=== PATIENT | male | born 1955 | race Caucasian/White ===

== ENCOUNTER 2021-04-09 07:47 | Outpatient (CLI) | payer OTHER, SELFPAY ==
--- NOTE | ~2021-04-09 | MR_ITS ---
EXAMINATION: MR lumbar spine wo con DATE: 04/09/2021 09:06 INDICATION: Lumbar radiculopathy. TECHNIQUE: Magnetic resonance imaging (MRI) of the lumbar spine was performed without intravenous con trast. Sequences included sagittal T2-weighted FSE, sagittal T2-weighted FS FSE, sagittal T1-weighted FSE, and axial T2-weighted FSE. COMPARISON: Lumbar spine MRI 07/26/2016 FINDINGS: There is 5 degrees dextrocurvature of thoracolumbar spine. There is 3 mm retrolisthesis of L3 on L4 and L4 on L5. Vertebral body heights are normal. There is mildly decreased disc height at L3 -L4, severely decreased disc height at L4-L5, and moderately decreased disc height at L5-S1. The dist al spinal cord signal intensity is normal. The conus medullaris is at L1-L2. The following disc level s are specifically discussed: L1-L2: The disc does not extend beyond the endplate margin. There is mild bilateral facet joint osteo arthritis. There is no neural foraminal stenosis. There is no central canal stenosis. L2-L3: The disc is bulging and has an annular fissure. There is mild bilateral facet joint osteoarthr itis. There is mild bilateral neural foraminal stenosis. There is no central canal stenosis. L3-L4: The disc is bulging and has an annular fissure. There is moderate bilateral facet joint osteoa rthritis. There is mild bilateral neural foraminal stenosis. There is mild central canal stenosis. L4-L5: The disc is bulging and has an annular fissure. There is severe right and moderate left facet joint osteoarthritis. There is moderate bilateral neural foraminal stenosis. There is mild central ca nal stenosis with posterior decompression. L5-S1: The disc is bulging. There is severe bilateral facet joint osteoarthritis. There is mild right and moderate left neural foraminal stenosis. There is mild central canal stenosis. IMPRESSION: 1. Severe lumbar spondylosis with worsened disc height loss at L4-L5 from 07/26/2016. Reviewed, dictated and finalized at location A. IMPRESSION: 1. Severe lumbar spondylosis with worsened disc height loss at L4-L5 from 2015.
== END 2021-04-09 07:48 | disposition home or self-care (01) ==
PROVIDERS: PCP Physician Assistant; Visit Provider Nurse Practitioner Family
DX: M47.26 Other spondylosis with radiculopathy, lumbar region (principal)
CPT/HCPCS: 72148

== ENCOUNTER 2021-04-29 06:37 | Outpatient (CLI) | payer OTHER, SELFPAY ==
--- NOTE | 2021-04-29 | ECG_ITS ---
Measurements Intervals [place] Rate: 75 P: 29 PA: 169 QRS: 34 QRSD: 96 T: 12 QT: 339 QTc: 380 Interpretive Statements SINUS RHYTHM INCOMPLETE RIGHT BUNDLE BRANCH BLOCK BORDERLINE ECG Electronically Signed On 04-29-2021 8:06:31 CDT by Kyle Myers D.O.
[2021-04-29 07:31] LABS: Hematocrit 40.7 % (42.0-52.0); Hemoglobin 13.9 g/dL (14.0-18.0); Mean Corpuscular HGB Conc 34.2 g/dl (32-36); Mean Corpuscular Hemoglobin 32.6 pg (26-34); Mean Corpuscular Volume 95.5 fl (80-100); Mean Platelet Volume 9.4 fl (7.4-10.4); Platelet Count Result 225 k/mm3 (150-375); Red Blood Count 4.26 M/mm3 (4.6-6.20); Red Cell Distribution Width 12.7 % (11.5-14.5); White Blood Count 5.5 K/mm3 (4.5-10.0)
[2021-04-29 07:41] LABS: Anion Gap 9 mmol/L (8-16); Blood Urea Nitrogen 16 mg/dL (9-20); Calcium 9.9 mg/dL (8.4-10.2); Carbon Dioxide 28 mmol/L (22-30); Chloride 103 mmol/L (98-107); Estimated Glomerular Filt Rate > 60; Glucose 115 mg/dL (75-110); Potassium 4.1 mmol/L (3.4-5.0); Sodium 140 mmol/L (137-145)
== END 2021-04-29 06:38 | disposition home or self-care (01) ==
LOC: ANHLAB 06:40
PROVIDERS: PCP Physician Assistant; Visit Provider Neurological Surgery
DX: I10 Essential (primary) hypertension (principal)
CPT/HCPCS: 36415; 80048; 85027; 93005

== ENCOUNTER 2023-04-16 14:39 | Emergency (ER) | payer OTHER, SELFPAY ==
[2023-04-16 14:54] VITALS: BP 148/76; PULSE 85; RESP 18; TEMP 36.2; O2SAT 98
--- NOTE | 2023-04-16 15:19 | ED.SKABFB ---
HPI - Skin/Abscess/Foreign Bdy General Chief complaint: Skin/Abscess/Foreign Body Stated complaint: rash Source: patient Mode of arrival: ambulatory Limitations: no limitations History of Present Illness HPI narrative: 67-year-old male presents to [facility] with complaints of erythematous itchy rash to his neck sprain to his face for the past 2 days. Patient reports that he has had similar reactions to poison bebo and poison oak in the past and has needed steroids at that time.. Patient reports that he was working outside a few days ago prior to rash starting. Patient has not tried any jfii-iga-iscyjcd medications for his symptoms. Patient denies shortness of breath, wheezing, trouble swallowing or difficulty breathing. MD complaint: rash Onset (ago): day(s) (2) Location: head and neck Associated symptoms: denies other symptoms Treatments prior to arrival: none Related Data Home Medications Medication Instructions Recorded Confirmed gabapentin 300 mg capsule 600 mg PO BID 09/14/22 04/16/23 celecoxib 200 mg capsule (Celebrex) 400 mg PO BID 04/16/23 04/16/23 Allergies Allergy/AdvReac Type Severity Reaction Status Date / Time aspirin Allergy Unknown Unknown Verified 04/16/23 15:02 Penicillins Allergy Unknown Unknown Verified 04/16/23 15:02 Review of Systems Constitutional: Constitutional: Denies chills, Denies fatigue, Denies fever(s) and Denies weakness ENT: Denies dizziness, Denies epistaxis and Denies nasal congestion Cardiovascular: Cardiovascular: Denies chest pain Respiratory: Respiratory: Denies cough, Denies dyspnea and Denies wheezing Gastrointestinal: Gastrointestinal: Denies diarrhea, Denies nausea and Denies vomiting Integumentary/Breasts: Skin/Breast: Denies erythema, Reports rash and Denies skin ulcer Comments: Possible poison bebo/poison oak to right-sided to neck and face Neurologic: Denies vertigo, Denies dizziness, Denies syncope and Denies headache(s) [facility] Past Medical History Medical History Hypertension Myalgia Surgical History Surgical History History of back surgery Ruptured disk, L4 and L5 09/05/2016 Hx of lumbar discectomy Family History Family History Father Malignant neoplasm of prostate Social History Social History Smoking status: Never smoker Second hand tobacco smoke exposure: No Smoking end date: 01/06/06 Alcohol intake: current Drinks per week: 2 Alcohol use details: Beer Substance use: never Substance use type: does not use Lack of Transportation: No Lack of Food: Never True Current Housing: I Have Housing Concerned About Future Housing: No Difficulty Paying Gas/Electric Bills: No Difficulty Paying for Meds: No Currently Unemployed: No Education: Bachelor's Degree Difficulty w/ Childcare or Family Care: No Living arrangements: with family Occupation/Education: occupation Gender identity (if verbalized by the patient): Male Sexual Orientation (if Verbalized by the Patient): Straight or Heterosexual Spiritual care concerns: No Agree to blood products: Yes Comments At time of signature, I agree with nursing past medical, surgical, social and family history. There is no relevant family history pertinent to the presenting complaint. Exam Const: General: healthy appearing, no acute distress and alert Nutritional Appearance: well nourished Orientation/consciousness: patient oriented x3 Limitations: no limitations Eyes: Conjunctivae: conjunctivae normal Direct Ophthalmoscopy: no photophobia Neck: Neck: no lymphadenopathy and no meningeal signs Other: Raised erythematous rash representing poison oak noted to right side of neck spreading to face. No bruising, necrotic tissue, bleeding or
[2023-04-16] MEDS: methylPREDNISolone SOD SUCC 125 MG VIAL IM (15:23)
== END 2023-04-16 15:27 | disposition home or self-care (01) ==
PROVIDERS: Emergency Provider Nurse Practitioner Family; PCP Family Medicine
DX: L25.5 Unspecified contact dermatitis due to plants, except food (principal); Z87.891 Personal history of nicotine dependence; I10 Essential (primary) hypertension
CPT/HCPCS: 96372; 99213; G0463; J2930

== ENCOUNTER 2023-04-26 16:01 | Emergency (ER) | payer OTHER, SELFPAY ==
[2023-04-26 16:12] VITALS: BP 138/74; PULSE 86; RESP 18; TEMP 36.6; O2SAT 97
--- NOTE | 2023-04-26 16:21 | ED.SKABFB ---
HPI - Skin/Abscess/Foreign Bdy General Chief complaint: Skin/Abscess/Foreign Body Stated complaint: rash Source: patient and RN notes reviewed History of Present Illness HPI narrative: 67-year-old male presents to urgent care with complaints of persistent contact dermatitis. Patient states he was seen here approximately 10 days ago and prescribed 5 days of prednisone 40 mg. Patient states this is very typical of him to have to repeat steroid regimen to hurt himself a poison bebo like rash. Patient states he has also been using triamcinolone 0.1% cream without any relief. Patient states the rash on his arms has improved slightly but is starting to come back again. Denies any fevers, chills, chest pain, shortness of breath, or vomiting. Related Data Home Medications Medication Instructions Recorded Confirmed gabapentin 300 mg capsule 600 mg PO BID 09/14/22 04/26/23 celecoxib 200 mg capsule (Celebrex) 400 mg PO BID 04/16/23 04/26/23 Allergies Allergy/AdvReac Type Severity Reaction Status Date / Time aspirin Allergy Unknown Unknown Verified 04/26/23 16:21 Penicillins Allergy Unknown Unknown Verified 04/26/23 16:21 Review of Systems Review of Systems: CONSTITUTIONAL: Denies fever, chills, or sweats. EYES: Denies visual changes, redness, or discharge. ENT: Denies otalgia and sore throat CARDIOVASCULAR: Denies chest pain, palpitations, or edema. RESPIRATORY: Denies cough or dyspnea. GASTROINTESTINAL: Denies abdominal pain, nausea, vomiting, or diarrhea. GENITOURINARY: Denies dysuria or hematuria. SKIN: persistent rash to bilateral arms MUSCULOSKELETAL: Denies back pain, joint pain, or myalgia. NEUROLOGIC: Denies headache, numbness, or weakness. Pertinent positives per HPI. [facility] Past Medical History Medical History Hypertension Myalgia Surgical History Surgical History History of back surgery Ruptured disk, L4 and L5 09/05/2016 Hx of lumbar discectomy Family History Family History Father Malignant neoplasm of prostate Social History Social History (Reviewed 04/16/23 @ 15:22 by WILLIAM Kovacs Smoking status: Never smoker Second hand tobacco smoke exposure: No Smoking end date: 01/06/06 Alcohol intake: current Drinks per week: 2 Alcohol use details: Beer Substance use: never Substance use type: does not use Lack of Transportation: No Lack of Food: Never True Current Housing: I Have Housing Concerned About Future Housing: No Difficulty Paying Gas/Electric Bills: No Difficulty Paying for Meds: No Currently Unemployed: No Education: Bachelor's Degree Difficulty w/ Childcare or Family Care: No Living arrangements: with family Occupation/Education: occupation Gender identity (if verbalized by the patient): Male Sexual Orientation (if Verbalized by the Patient): Straight or Heterosexual Spiritual care concerns: No Agree to blood products: Yes Comments At the time of my signature, I reviewed and agree with the nursing past medical, surgical, social, and family history. There is no relevant family history pertinent to the patient complaint. Exam Narrative: GENERAL: This is a well-nourished, well-developed patient, in no apparent distress. HEAD: normocephalic, atraumatic. EYES: Sclera clear/white. Vision is grossly intact. EARS: External ears normal, auditory canals clear and without drainage. Hearing grossly intact. NOSE: External nose normal with no obvious nasal discharge, nares without redness, no rhinorrhea. THROAT: Mucous membranes moist, posterior pharynx clear. NECK: Neck supple, non-tender without lymphadenopathy, masses or thyromegaly. CARDIOVASCULAR: Regular rate and rhythm without murmurs, gallops, or rubs. RESPIRATORY: Clear to auscultation. Breath sounds equal bilateral
== END 2023-04-26 16:25 | disposition home or self-care (01) ==
PROVIDERS: Emergency Provider Nurse Practitioner Family; PCP Family Medicine
DX: L25.9 Unspecified contact dermatitis, unspecified cause (principal); Z87.891 Personal history of nicotine dependence; I10 Essential (primary) hypertension
CPT/HCPCS: 99213; G0463

== ENCOUNTER 2023-10-16 09:07 | Outpatient (CLI) | payer OTHER, SELFPAY ==
--- NOTE | 2023-11-06 14:49 | WPDHOMESLEEP ---
Sleep Study - Home Unattended Date of Study: 10/16/23 Ordering Provider: Urszula Coleman PA-C Interpreting Provider: Cyndi Wills, DO Home Sleep Study Type: Watch PAT Height: 1.75 m Weight: 97.069 kg Body Mass Index: 31.6 Neck Circumference (inches): 17 [place]: 10 Reason for Sleep Study Snoring, witnessed apneas Sleep History The patient is a 67-year-old male with hypertension, hyperlipidemia, gout and chronic low back pain that had a sleep study ordered by his primary care for evaluation of sleep apnea. The patient works in industrial sales. He denies awakening from sleep short of breath. He denies awakening at night with heartburn, belching or cough. He frequently snores and is frequently loud enough that others complain. He denies having trouble sleeping when he has a cold. He denies waking up gasping for air throughout the night. He frequently has breathing problems at night observed by himself or others. He denies sweating excessively at night. He denies having heart palpitations or irregular heartbeats during the night. He denies falling asleep during the day and while driving. He denies sleep paralysis, cataplexy and hypnagogic / hypnopompic hallucinations. He denies having trouble at school or work due to sleepiness. He denies feeling afraid of going to sleep. He denies having nightmares. He rarely remembers his dreams. He denies having thoughts racing through his mind. He denies feeling sad, depressed and anxious. He denies having muscular tension. He denies noticing parts of his body jerk. He denies kicking during the night. He denies having crawling and aching feelings in his legs but occasionally has leg pain during the night he occasionally grinds his teeth during sleep but never awakens with morning jaw pain. He is frequently bothered by pain during the day and frequently awakened by pain during the night. He frequently wakes up feeling stiff in the morning. He frequently wakes up with sore or achy muscles. He frequently wakes up with pain in the neck, spine and other joints. He goes to bed 8:30 p.m. on both weekdays and weekends. It takes him 5 minutes to fall asleep. He wakes up 2-3 times throughout the night. When he awakens, he will have a cup of coffee and a can take him 1 hour to fall back asleep. He wakes up between 1-230 a.m. on both weekdays and weekends. He typically gets 6 hours of sleep per night. He will spend a few minutes and after waking up in the morning. He currently lives with his . He denies consuming any caffeinated beverages within 2 hours of bedtime. He will engage in physical exercise before bedtime. He will watch television before falling asleep. He will occasionally take naps in afternoon or the evening and they are refreshing. He consumes 2 cups of coffee throughout the day. He consumes 1-2 beers per day. He denies tobacco and recreational drug use. [facility] Past Medical History Medical History Hypertension Myalgia Surgical History Surgical History History of back surgery Ruptured disk, L4 and L5 09/05/2016 Hx of lumbar discectomy Family History Family History Father Malignant neoplasm of prostate Social History Social History Smoking status: Never smoker Second hand tobacco smoke exposure: No Smoking end date: 01/06/06 Alcohol intake: current Drinks per week: 2 Alcohol use details: Beer Substance use: never Substance use type: does not use Lack of Transportation: No Lack of Food: Never True Current Housing: I Have Housing Concerned About Future Housing: No Difficulty Paying Gas/Electric Bills: No Difficulty Paying for Meds: No Currently Unemployed: No Education: Bachelor's Degree Diffi
[2023-11-06 14:55] VITALS: BMI 31.6
== END 2023-10-19 10:16 | disposition home or self-care (01) ==
PROVIDERS: PCP Family Medicine; Visit Provider Physician Assistant
DX: G47.33 Obstructive sleep apnea (adult) (pediatric) (principal); I10 Essential (primary) hypertension
CPT/HCPCS: 95800

== ENCOUNTER 2025-04-20 13:52 | Outpatient (CLI) | payer OTHER, SELFPAY ==
--- NOTE | ~2025-04-20 | MR_ITS ---
MRI of the left shoulder Technique: Axial proton-density fat-sat images, coronal proton density fat-sat and T2 fat-sat images, and sagittal T1-weighted and T2 fat-sat images were acquired. Clinical History: Biceps tendinitis Findings: There is moderate AC joint degenerative change with superior reactive bony productive alexander e at the joint. Coracoclavicular, coracoacromial, and coracohumeral ligaments are intact. There is moderate to advanced supraspinatus and infraspinatus tendinosis. There is a 4 mm linear low- grade articular surface partial tear at the distal supraspinatus tendon insertion. No high-grade part ial or full-thickness tear seen. There is advanced subscapularis tendinosis. There is complete ruptur e of the proximal biceps tendon, retracted beyond the [id number] into the upper arm. There is tearing of the superior labrum. Inferior glenohumeral ligament is intact. Minimal glenohumeral joint effusion present. No degenerativ e change of the glenohumeral joint. No fluid distention of the subacromial/subdeltoid bursa. No muscl e atrophy or edema. Impression: Severe rotator cuff tendinosis with 4 mm linear low-grade articular surface partial tear of the dista l supraspinatus tendon insertion. Complete rupture of the proximal long head biceps tendon which is retracted beyond the [id number] into the upper arm/bicipital groove. Tearing of the superior labrum. Moderate AC joint degenerative change. Reviewed, dictated and finalized at [facility]. Impression: Severe rotator cuff tendinosis with 4 mm linear low-grade articular surface par tial tear of the distal supraspinatus tendon insertion. Complete rupture of the proximal long head biceps tendon which is retracted bey ond the [id number] into the upper arm/bicipital groove. Tearing of the superior labrum. Moderate AC joint degenerative change.
== END 2025-04-20 13:53 | disposition home or self-care (01) ==
PROVIDERS: PCP Physician Assistant; Visit Provider Physician Assistant
DX: M75.22 Bicipital tendinitis, left shoulder (principal); S46.012A Strain of muscle(s) and tendon(s) of the rotator cuff of left shoulder, initial encounter; S46.112A Strain of muscle, fascia and tendon of long head of biceps, left arm, initial encounter; S43.432A Superior glenoid labrum lesion of left shoulder, initial encounter; X58.XXXA Exposure to other specified factors, initial encounter; M19.012 Primary osteoarthritis, left shoulder
CPT/HCPCS: 73221

== ENCOUNTER 2025-04-21 16:00 | Emergency (ER) | payer OTHER, SELFPAY ==
[2025-04-21 16:09] VITALS: BP 139/79; PULSE 82; RESP 16; TEMP 36.2; O2SAT 98
--- NOTE | 2025-04-21 16:26 | ED_ITS ---
HPI - Skin/Abscess/Foreign Bdy General Chief complaint: Skin/Abscess/Foreign Body Stated complaint: rash Time Seen by Provider: 04/21/25 16:10 Source: patient and RN notes reviewed Mode of arrival: ambulatory Limitations: no limitations History of Present Illness HPI narrative: 69-year-old male presents Express Care complaining of poison jimena on bilateral arms. Patient said approximately 5 days ago patient was doing yd work cut and a poison jimena that it is on his property. Patient stated started on his left are now spread to his right arm. Reports the rash is pruritic. Patient has been using hydrocortisone cream without relief. Patient denies any significant past medical history or diabetes. Related Data Allergies Allergy/AdvReac Type Severity Reaction Status Date / Time No Known Allergies Allergy Verified 04/21/25 16:09 Review of Systems Review of Systems: CONSTITUTIONAL: Denies fever, chills, or sweats. EYES: Denies visual changes, redness, or discharge. ENT: Denies rhinorrhea, congestion, sore throat, or otalgia. CARDIOVASCULAR: Denies chest pain, palpitations, or edema. RESPIRATORY: Denies cough or dyspnea. GASTROINTESTINAL: Denies abdominal pain, nausea, vomiting, or diarrhea. GENITOURINARY: Denies dysuria or hematuria. SKIN: Positive for rash and itching. MUSCULOSKELETAL: Denies back pain, joint pain, or myalgia. NEUROLOGIC: Denies headache, numbness, or weakness. PSYCHIATRIC: Denies anxiety or depression. All other systems reviewed are negative, except as documented in HPI. [facility] Past Medical History Medical History Myalgia Hypertension Surgical History Surgical History History of back surgery Ruptured disk, L4 and L5 09/05/2016 Hx of lumbar discectomy Family History Family History Father Malignant neoplasm of prostate Social History Social History Smoking status: Never smoker Second hand tobacco smoke exposure: No Smoking end date: 01/06/06 Alcohol intake: current Drinks per week: 2 Alcohol use details: Beer Substance use: never Substance use type: does not use Lack of Transportation: No Lack of Food: Never True Current Housing: I Have Housing Concerned About Future Housing: No Difficulty Paying Gas/Electric Bills: No Difficulty Paying for Meds: No Currently Unemployed: No Education: Bachelor's Degree Difficulty w/ Childcare or Family Care: No Living arrangements: with family Occupation/Education: occupation Gender identity (if verbalized by the patient): Male Sexual Orientation (if Verbalized by the Patient): Straight or Heterosexual Spiritual care concerns: No Agree to blood products: Yes Comments At the time of my signature, I reviewed and agree with the nursing past medical, surgical, social, and family history. There is no relevant family history pertinent to the patient complaint. Exam Narrative: GENERAL: This is a well-nourished, well-developed adult, in no apparent distress. They are non ill-appearing, nontoxic appearing. HEAD: normocephalic, atraumatic. EYES: Sclera clear/white. Conjunctiva normal. Vision is grossly intact. Extraocular movements intact EARS: External ears normal. Hearing grossly intact. NOSE: External nose normal THROAT: Mucous membranes moist, NECK: Neck supple, CARDIOVASCULAR: Regular rate and rhythm RESPIRATORY: Respiratory rate normal, respiratory effort nonlabored, no respiratory distress SKIN: There is a pruritic vesicular, papular erythematous rash scattered throughout the patient's bilateral arms. No surrounding cellulitis, no area of fluctuance, no induration. No exudate is present. Lesions are nontender. NEURO: awake, alert, and oriented to person, place and time. There were no obvious focal neurologic abnormalities. EXTREMITIES: No joint tenderness, effusion, or edema noted. Course Course Emergency Course: Portions of this record may have been created with voice recognition software Level of Care: Express Care Visit Vital Signs Vital signs: Vital Signs Temperature 97.1 F L 04/21/25 16:09 Pulse Rate 82 04/21/25 16:09 Respiratory Rate 16 04/21/25 16:09 Blood Pressure 139/79 04/21/25 16:09 Pulse Oximetry 98 04/21/25 16:09 Oxygen Delivery Room Air 04/21/25 16:09 Temperature 97.1 F L 04/21/25 16:09 Pulse Rate 82 04/21/25 16:09 Respiratory Rate 16 04/21/25 16:09 Blood Pressure 139/79 04/21/25 16:09 Pulse Oximetry 98 04/21/25 16:09 Oxygen Delivery Room Air 04/21/25 16:09 Reviewed MDM - Skin/Abscess/Foreign Bdy MDM Narrative Medical decision making narrative: Patient likely has contact dermatitis from poison jimena. Will treat with prednisone taper. Will also prescribe triamcinolone cream to apply topically. Discussed physical exam findings. Advised supportive measures and signs/symptoms to go to the ER. Pt is appropriate for outpt treatment and f/u. Differential Diagnosis Differential diagnosis: Likely cellulitis, eczema and contact dermatitis Critical Care Time Critical Care Time Critical Care Time: No Discharge Plan Discharge Clinical Impression: Poison jimena Patient Disposition: Home Condition: Stable Instructions: Antibiotic Form, Poison Jimena (ED) Additional Instructions: Take the prednisone as directed. Take it in the morning and take it with food. Use the triamcinolone cream as directed. You may use [id number] Tecnu soap as directed on the bottle to help remove the oils from poison jimena off your skin. You may use calamine lotion, camphor, or Benadryl cream as needed for itchiness symptoms. You may also take Zyrtec or Claritin as needed for allergy ear itchiness symptoms. Follow-up PCP in 3-5 days. If you develop any worsening redness, swelling, discharge, fevers, breathing problems, or any other concerns please go to the ER immediately. Patient Language: Arabic Prescriptions: New prednisone 10 mg tablet See Taper PO DIRECTED Qty: 42 0RF Taper: Prednisone Taper from 60 mg;12 days 60 mg DAILY for 2 Days and 0 Hour 50 mg DAILY for 2 Days and 0 Hour 40 mg DAILY for 2 Days and 0 Hour 30 mg DAILY for 2 Days and 0 Hour 20 mg DAILY for 2 Days and 0 Hour 10 mg DAILY for 2 Days and 0 Hour Rx Instructions: see taper instructions triamcinolone acetonide 0.5 % cream 1 applic topical BID 7 Days Qty: 15 0RF Rx Instructions: Apply to affected area No Action celecoxib [Celebrex] 200 mg capsule 200 mg PO BID Qty: 1 0RF gabapentin 300 mg capsule 300 mg PO BID Qty: 1 0RF sildenafil [Viagra] 100 mg tablet 100 mg PO DAILY PRN (Reason: erectile dysfunction) Qty: 7 11RF hydrochlorothiazide 12.5 mg tablet 12.5 mg PO DAILY Qty: 90 2RF lisinopril 40 mg tablet 40 mg PO DAILY Qty: 90 1RF atorvastatin 20 mg tablet 20 mg PO DAILY Qty: 90 1RF allopurinol 300 mg tablet 300 mg PO DAILY Qty: 90 1RF Follow-up/Referrals: Mary Santiago MD [Primary Care Provider] - Time of Disposition: 16:19
--- OUTSIDE RECORDS SUMMARY | 2025-04-21 17:09 | XMS_ITS | Clinical Summary ---
Author Organization [facility] Address [address] [place] [address] [place] [address] Care Team Providers Care Rotary Drill Rig Operator Name Role Phone Unavailable Primary Care Provider Unavailabl e Source Comments [facility],non-owned Affiliates and Associated Physician Practices is amultiple site organization consisting of ambulatory clinics and hospital sitesin [place], [place], [place] and [place]. This disclosure is being madepursuant to the Care Everywhere program and may not contain all information available regarding this patient. Last updated 18.[facility] CV Ingenuity Social History Tobacco Use Types Packs/Day Years Used Date Smoking Tobacco: Never Assessed Sex and Gender Information Value Date Recorded Sex Assigned at Not on file Legal Sex Male 12:29 PM CDT Gender Identity Not on file Sexual Orientation Not on file Plan of Treatment Health Maintenance Due Date Last Done Comments COLOGUARD (AGES 45-75) - COL ON CA SCREENING 1957 COLON MONITORING 1957 COLONOSCOPY - COLON CA SCREENING 1957 CT COLONOGRAPHY - COLON CA SCREENING 1957 Colorectal Cancer Screening 1957 FIT - COLON CA SCREENING 1957 FLEX SIG - COLON CA SCREENING 1957 LIPID TESTING 1957 HEPATITIS C SCREENING 12/02/1975 DTAP/TDAP/TD VACCINES (1 - Tdap) 1976 PNEUMOCOCCAL VACCINE 50+ (1 of 1 - PCV) 2007 ZOSTER VACCINE (1 of 2) 2007 COVID-19 VACCINE ( - 2023-2 5 season) 2024 DEPRESSION SCREENING 11/12/2024 INFLUENZA VACCINE (Season Ended) 2025 Respiratory Syncytial Virus (RSV) Vaccine Pt: or over 60 yrs (1 - 1-dose 75+ series) 2032 HEPATITIS B VACCINE Aged Out No longe r eligible based on patient's age to complete this topic HIB VACCINE Aged Out No longer eligi ble based on patient's age to complete this topic HPV VACCINE Aged Out No longer eligi ble based on patient's age to complete this topic MENINGOCOCCAL (Group B) VACC INE SHARED DECISION-MAKING Aged Out No longer eligibl e based on patient's age to complete this topic MENINGOCOCCAL GROUPS A/C/Y/W VACCINE Aged Out No longer eligible b ased on patient's age to complete this topic Insurance [facility]
--- OUTSIDE RECORDS SUMMARY | 2025-04-21 17:09 | XMS_ITS | Encounter Summary ---
Author Organization [facility] Address [address] [place] [address] [place] [address] Care Team Providers Care Exchange Engineer Name Role Phone Unavailable Primary Care Provider Unavailabl e Encounter Details Date Type Department Care Team (Late st Contact Info) Description 10/17/2019 Lab Requisition [facility] DermPath Lab [address] [place] [address] Rangel Cabrera MD [address] [place] [address] Social History Tobacco Use Types Packs/Day Years Used Date Smoking Tobacco: Never Assessed Sex and Gender Information Value Date Recorded Sex Assigned at Not on file Legal Sex Male 12:29 PM CDT Gender Identity Not on file Sexual Orientation Not on file documented as of this encounter Plan of Treatment Not on file documented as of this encounter Procedures Procedure Name Priority Date/Time Associated Diagnosis Comments DERMATOPATHOLOGY Routine 10/15/2019 12:0 0 AM STILL OPERATOR HELPER documented in this encounter Results * DERMATOPATHOLOGY (10/15/2019 12:00 AM STILL OPERATOR HELPER) Case Report Dermatopathology Report Case: [id number] Authorizing Provider: Rangel Cabrera MD Collected: 10/15/2019 12:00 AM Ordering Location: [facility] DermPath Lab Received: 10/17/2019 10:38 AM Pathologist: Marisela Willoughby MD Specimen: Skin, right upper lateral back 9 1:23 PM STILL OPERATOR HELPER DERMATOPATHOLOGY LABORATORY Final Diagnosis Specimen A. SKIN, right upper lateral back: SEBORRHEIC KERATOSIS, IRRITATED (L82.0) 9 1:23 PM STILL OPERATOR HELPER DERMATOPATHOLOGY LABORATORY at 1323 STILL OPERATOR HELPER Clinical History R/O BCC, ISK. 1:23 PM [facility] DERMATOPATHOLOGY LABORATORY Gross Description Specimen A: Received is one formalin filled container labeled with the patient's name and designated right upper lateral back. The specimen consists of a shave biopsy measuring 8a2o5aj. Jar 0. 1:23 PM [facility] DERMATOPATHOLOGY LABORATORY Microscopic Description Specimen A. SKIN, right upper lateral back: There is acanthosis consisting of fairly uniform squamous cells with eosinophilic cytoplasm and squamous eddies. 1:23 PM [facility] DERMATOPATHOLOGY LABORATORY Disclaimer An external and internal positive and negative controls are appropriate for the histochemical, immunohistochemical and immunofluorescence stain(s) in this case (if any), except where stated explicitly. The performance characteristics of the stain(s) cited in this report were developed and its performance characteristic determined by the Dermatopathology Laboratory at [facility], directed by Dr. Girma Back. These tests need not be, and therefore are not, approved by the [place] Food and Drug Administration. The tests are used for clinical purposes. Billing Codes Specimen Charges Stain Charges 24506 1 1:23 PM [facility] DERMATOPATHOLOGY LABORATORY Embedded Images 1:23 PM [facility] DERMATOPATHOLOGY LABORATORY Pathology/Cytolog y TISSUE SPECIMEN FROM SKIN / Unknown 10/15/2019 10/17/2019 10:38 AM [facility] Rangel Cabrera MD LAB - PATHOLOGY/CYTOLOGY ORD ERABLES Final Result DERMATOPATHOLOGY LABORATORY [facility] - Department of Dermatology [address] [place] [address], 5th [place] [address], [facility] [phone] documented in this encounter Visit Diagnoses Not on filedocumented in this encounter
--- OUTSIDE RECORDS SUMMARY | 2025-04-21 17:09 | XMS_ITS | Encounter Summary ---
Author Organization [facility] Address [address] [place] [address] [place] [address] Care Team Providers Care Turkish Line Attendant Name Role Phone Unavailable Primary Care Provider Unavailabl e Encounter Details Date Type Department Care Team (Late st Contact Info) Description 06/21/2022 Lab Requisition [facility] DermPath Lab [address] [facility] [place] [address] Rangel Cabrera MD [address] [place] [address] Social History Tobacco Use Types Packs/Day Years [...] Priority Date/Time Associated Diagnosis Comments DERMATOPATHOLOGY Routine 06/20/2022 3:33 AM CDT documented in this encounter Results * DERMATOPATHOLOGY (06/20/2022 3:33 AM CDT) Case Report Dermatopathology Report Case: [id number] Authorizing Provider: Rangel Cabrera MD Collected: 06/20/2022 03:33 AM Ordering Location: [facility] DermPath Lab Received: 06/21/2022 11:05 AM Pathologist: Mer Jones MD Specimens: A) - Skin, dorsal left web thumb B) - Skin, right elbow plaque 4:41 PM CDT DERMATOPATHOLOGY LABORATORY Final Diagnosis Specimen A. SKIN, dorsal left web thumb: SQUAMOUS CELL CARCINOMA, WELL DIFFERENTIATED (C44.629) (see microscopic description) Specimen B. SKIN, right elbow plaque: BENIGN VERRUCOUS KERATOSIS (L82.1) 2 4:41 PM CDT DERMATOPATHOLOGY LABORATORY at 1641 CDT Clinical History A: R/O KA, SCC B: R/O Dermatitis, LPLK, SCCIS, PSO 2 4:41 PM CDT DERMATOPATHOLOGY LABORATORY Gross Description Specimen A: Received is one formalin filled container labeled with the patient's name and designated dorsal left web thumb. The specimen consists of a shave biopsy measuring [id number] and another piece of tissue measuring 8q1o4jf. Jar 0. Specimen B: Received is one formalin filled container labeled with the patient's name and designated right elbow plaque. The specimen consists of a shave biopsy measuring 5o4a4qt. Jar 0. 2 4:41 PM CDT DERMATOPATHOLOGY LABORATORY Microscopic Description Specimen A. SKIN, dorsal left web thumb: Arising in the epidermis and extending into the dermis there are irregularly shaped aggregates of keratinocytes showing evidence of premature cornification. Additional deeper sections were obtained and reviewed. Specimen B. SKIN, right elbow plaque: Sections show hyperkeratosis, papillomatosis, hypergranulosis, and acanthosis. These histological findings can be seen in a verruca vulgaris or a seborrheic keratosis. 2 4:41 PM CDT DERMATOPATHOLOGY LABORATORY Disclaimer An external and internal positive and negative controls are appropriate for the histochemical, immunohistochemical and immunofluorescence stain(s) in this case (if any), except where stated explicitly. The performance characteristics of the stain(s) cited in this report were developed and its performance characteristic determined by the Dermatopathology Laboratory at [facility], directed by Dr. Girma Back. These tests need not be, and therefore are not, approved by the [place] Food and Drug Administration. The tests are used for clinical purposes. Billing Codes Specimen Charges Stain Charges 77095 56194 1 1 2 4:41 PM CDT DERMATOPATHOLOGY LABORATORY Embedded Images 2 4:41 PM CDT DERMATOPATHOLOGY LABORATORY Pathology/Cytology TISSUE SPECIMEN FROM SKIN / Unknown 06/20/2022 3:33 AM CDT 06/21/2022 11:05 AM CDT Miscellaneous samples (specimen) TISSUE SPECIMEN FROM SKIN / Unknown 06/20/2022 3:33 AM CDT 06/21/2022 11:05 AM CDT Rangel Cabrera MD LAB - PATHOLOGY/CYTOLOGY ORD ERABLES Final Result DERMATOPATHOLOGY LABORATORY [facility] - Department of Dermatology [facility] Medicine [address] [place] [address], [address] [phone] documented in this encounter Visit Diagnoses Not on filedocumented in this encounter
--- OUTSIDE RECORDS SUMMARY | 2025-04-21 17:09 | XMS_ITS | Encounter Summary ---
Author Organization [facility] Address [address] [place] [address] [place] [address] Care Team Providers Care Cupola Operator Insulation Name Role Phone Unavailable Primary Care Provider Unavailabl e Encounter Details Date Type Department Care Team (Late st Contact Info) Description 05/16/2019 Lab Requisition [facility] DermPath Lab [address] [facility] [place] [address] Rangel Cabrera MD [address] [place] [address] Social History Tobacco Use Types Packs/Day Years [...] Priority Date/Time Associated Diagnosis Comments DERMATOPATHOLOGY Routine 05/14/2019 12:0 0 AM CDT documented in this encounter Results * DERMATOPATHOLOGY (05/14/2019 12:00 AM CDT) Case Report Dermatopathology Report Case: [id number] Authorizing Provider: Rangel Cabrera MD Collected: 05/14/2019 12:00 AM Pathologist: Marisela Willoughby MD Received: 05/16/2019 01:03 PM Specimen: Skin, left mid ext FA 9 11:16 AM CDT DERMATOPATHOLOGY LABORATORY Final Diagnosis Specimen A. 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 11:16 AM CDT DERMATOPATHOLOGY LABORATORY Gross Description Specimen A: Received is one formalin filled container labeled with the patient's name and designated left mid ext FA. The specimen consists of a curettage and desiccation biopsy measuring 86g0b5pf. Jar 0. 11:16 AM CDT DERMATOPATHOLOGY LABORATORY Microscopic Description Specimen A. SKIN, left mid ext FA: There is a cup-shaped lesion with central hyperkeratosis with elements of parakeratosis. The epithelial cells making up the singh of the cup show abundant eosinophilic cytoplasm. There is immaturity of the keratinocytes in the outermost layers of this epithelium. In the dermis there is marked fibroplasia with a mixed inflammatory infiltrate containing eosinophils. 11:16 AM CDT DERMATOPATHOLOGY LABORATORY Disclaimer An external and internal positive and negative controls are appropriate for the histochemical, immunohistochemical and immunofluorescence stain(s) in this case (if any), except where stated explicitly. The performance characteristics of the stain(s) cited in this report were developed and its performance characteristic determined by the Dermatopathology Laboratory at [facility], directed by Dr. Girma Back. These tests need not be, and therefore are not, approved by the [place] Food and Drug Administration. The tests are used for clinical purposes. Billing Codes Specimen Charges Stain Charges 54917 1 11:16 AM CDT DERMATOPATHOLOGY LABORATORY Embedded Images 11:16 AM CDT DERMATOPATHOLOGY LABORATORY Pathology/Cytolog y TISSUE SPECIMEN FROM SKIN / Unknown 05/14/2019 05/16/2019 1:03 PM CDT us Rangel Cabrera MD LAB - PATHOLOGY/CYTOLOGY ORD ERABLES Final Result DERMATOPATHOLOGY LABORATORY [facility] - Department of Dermatology [facility] 5th [place] [address], [facility] [phone] documented in this encounter Visit Diagnoses Not on filedocumented in this encounter
--- OUTSIDE RECORDS SUMMARY | 2025-04-21 17:09 | XMS_ITS | Referral Summary ---
Author Organization [address] [address] Care Team Providers Care Certified Scrub Tech Name Role Phone Unknown, Notinfile Primary Care Provider Unavail able Encounters Date Type Department Care Team Description 04/15/2025 Orders Only [facility] Medical Group Orthopedic and Sports Medicine [address] [place] [phone] Clyde Castro PA Biceps tendinitis of left upper extremity (Primary Dx) 04/15/2025 8:30 AM CDT Ancillary Procedure [facility] Medical [facility] Imaging at [address] [address] 04/15/2025 8:30 AM CDT Office Visit [facility] Orthopedic and Sports Medicine [address] [place] [phone] Clyde Castro PA Biceps tendinitis of left upper extremity (Primary Dx) from Last 3 Months Allergies Active Allergy Reactions Criticality Noted Date Comments Aspirin Other (See comments) Reaction: UNKNOWN, Medications No known medications Active Problems No known active problems Social History Tobacco Use Types Packs/Day Years Used Date Smoking Tobacco: Never Assessed Sex and Gender Information Value Date Recorded Sex Assigned at Not on file 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 Gender Identity Not on file Sexual Orientation Not on file Last Filed Vital Signs Vital Sign Reading Time Taken Comments Blood Pressure 150/82 04/15/2025 8:38 AM CDT Pulse 59 04/15/2025 8:38 AM CDT Temperature - - Respiratory Rate - - Oxygen Saturation - - Inhaled Oxygen Concentration - - Weight 99.3 kg (219 lb) 04/15/2025 8:38 AM CDT Height 175.3 cm (5' 9) 04/15/2025 8:38 AM CDT Body Mass Index 32.34 04/15/2025 8:38 AM CDT Plan of Treatment Not on file Procedures Procedure Name Priority Date/Time Associated Diagnosis Comments XR SHOULDER LEFT 2 OR MORE VIEWS Schedule Routine, Read Routine (OP Routine) 04/15/2025 8:36 AM CDT Biceps tendinitis of left upper extremity from Last 3 Months Results * XR Shoulder Left 2 or More Views (04/15/2025 8:36 AM CDT) Anatomical Region Laterality Modality Upper Extremities, Shoulder Left Digi [facility] Radiography Narrative 04/15/2025 8:46 AM CDT Four views of the left shoulder negative for acute fracture dislocation or osseous lesion. Well-maintained glenohumeral joint space is noted. Moderate arthritic change noted of the acromioclavicular joint. Type 1 acromion is noted. There is inferior clavicular spurring affecting the subacromial space. Clyde MOLINA IMG XR PROCEDURES Final Res ult from Last [address] [place] [address] [place] [phone] [facility] Care Teams Certified Scrub Tech Relationship Specialty Start Date End Date Unknown, Notinfile PCP - General 03/20/25
--- OUTSIDE RECORDS SUMMARY | 2025-04-21 17:09 | XMS_ITS | Clinical Summary ---
Author Organization [facility] [address] [place] [address] Care Team Providers Care Founder Chairman And Chief Creative Officer Name Role Phone Unknown, Notinfile Primary Care Provider Unavail able Allergies Active Allergy Reactions Criticality Noted Date Comments Aspirin Other (See comments) Reaction: UNKNOWN, Medications No known medications Active Problems No known active problems Encounters Date Type Department Care Team Description 04/15/2025 8:30 AM CDT Ancillary Procedure [facility] Medical Group Imaging at [address] [address] 04/15/2025 8:30 AM CDT Office Visit [facility] Medical Group Orthopedic and Sports Medicine [address] [place] [phone] Clyde Castro PA Biceps tendinitis of left upper extremity (Primary Dx) 04/15/2025 Orders Only [facility] Medical [facility] Orthopedic and Sports Medicine [address] [place] [phone] Clyde Castro PA Biceps tendinitis of left upper extremity (Primary Dx) from Last 3 Months Social History Tobacco Use Types Packs/Day Years Used Date Smoking Tobacco: Never Assessed Sex and Gender Information Value Date Recorded Sex Assigned at Not on file 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 Gender Identity Not on file Sexual Orientation [...] 04/15/2025 8:38 AM CDT Plan of Treatment Health Maintenance Due Date Last Done Comments Colon Cancer Screening-Colonoscopy 1957 Depression Screening 1957 Fall Risk Assessment 1957 Hepatitis C Screening 1957 Prostate Cancer Screening-PSA 1957 DTaP/Tdap/Td Vaccine (1 - Tdap) 1968 Hepatitis B Screening 1975 Pneumococcal vaccine 65+ (1 of 1 - PCV) 2007 Abdominal Aortic Aneurysm (A AA) Screen 2022 Well Visit 65+ 2022 Covid-19 Vaccine (2023-2 5 season) 2025 10/07/2024, 09/29/2023, 01/06/2023, Additional history exists Zoster Vaccine Completed 06/18/2022, 04/15/2022 Influenza Vaccine Completed 10/07/2024, , 09/14/2022, Additional history exists Procedures Procedure Name Priority Date/Time Associated Diagnosis [...] from [place] [address] [place] [phone] [facility] H[facility]/PPO Address: [facility] [address] [place] [address] Care Teams Founder Chairman And Chief Creative Officer Relationship Specialty Start Date End Date Unknown, Notinfile PCP - General 03/20/25
== END 2025-04-21 16:28 | disposition home or self-care (01) ==
PROVIDERS: PCP Family Medicine
DX: L23.7 Allergic contact dermatitis due to plants, except food (principal); I10 Essential (primary) hypertension; Z87.891 Personal history of nicotine dependence
CPT/HCPCS: 99213; G0463